=== PATIENT | female | born 1985 | race Caucasian/White ===

== ENCOUNTER 2024-07-09 15:38 | Emergency (ER) | payer OTHER ==
[~2024-07-09] VITALS: Ht 162.6 cm; Wt 64.0 kg
[2024-07-09 15:45] VITALS: O2SAT 100
[2024-07-09] MEDS: ACETAMINOPHEN 325MG TABLET PO ONE (19:01)
[2024-07-09 20:00] VITALS: BP 105/72; PULSE 67; RESP 20; TEMP 36.55848; O2SAT 97
== END 2024-07-09 20:00 ==
LOC: ER 15:38
DX: S52.92XD Unspecified fracture of left forearm, subsequent encounter for closed fracture with routine healing (principal); X58.XXXD Exposure to other specified factors, subsequent encounter
CPT/HCPCS: 29125; 73110; 99283